=== PATIENT | female | born 1950 | race Caucasian/White ===

== ENCOUNTER → 2018-04-15 | Outpatient (CLI) | payer MEDICARE, OTHER ==
--- NOTE | 2018-04-15 16:58 | RAD ---
History: Right shoulder pain. Comparison: None. Findings: AP internal rotation, AP external rotation, and scapular Y view of the right shoulder. No acute fracture or dislocation is identified. Mild glenohumeral degeneration is seen. Impression: 1. No acute fracture or dislocation is identified. 2. Mild glenohumeral degeneration. Electronically signed by: Jeremy Gallegos MD (04/15/2018 4:54 PM) [facility]
== END | disposition home or self-care (01) ==
LOC: PMG 12:39
PROVIDERS: ATTEND Physician Assistant
DX: M19.011 Primary osteoarthritis, right shoulder (principal)
CPT/HCPCS: 73030

== ENCOUNTER → 2019-02-14 | Outpatient (CLI) | payer MEDICARE, OTHER ==
--- NOTE | 2019-02-14 11:42 | RAD ---
Lumbar spine 5 views. HISTORY: Low back pain 5 views were taken of the lumbar spine including both obliques. There is no acute fracture. There is mild hypertrophic facet arthritis in the lower lumbar spine. There is not evidence of spondylolysis. There is no abnormal subluxation. IMPRESSION: 1. Mild degenerative and hypertrophic changes in the lumbar spine. 2. No acute fracture. Electronically signed by: Germán Mary MD (02/14/2019 11:39 AM) [facility]
== END | disposition home or self-care (01) ==
LOC: RAD 11:03
PROVIDERS: ATTEND Physician Assistant
DX: M51.36 Other intervertebral disc degeneration, lumbar region (principal); M89.38 Hypertrophy of bone, other site; M46.86 Other specified inflammatory spondylopathies, lumbar region
CPT/HCPCS: 72110

== ENCOUNTER → 2021-02-20 | Outpatient (CLI) | payer MEDICARE, OTHER ==
[~2021-02-20] MED LIST: IOHEXOL 240 MG/ML 50ML VIAL. ONE; IOHEXOL 240 MG/ML 50ML VIAL. PO ONE; IOHEXOL 300 MG/ML 75 ML VIAL. IV ONE
[2021-02-20 09:18] LABS: CREATININE 1.3 mg/dL (0.6-1.0); GFR 40.3
--- NOTE | 2021-02-20 10:24 | RAD ---
EXAM: Abdomen and pelvis CT with intravenous contrast. HISTORY: Rectal bleeding. Rectal cancer. TECHNIQUE: Computed tomographic images of the abdomen and pelvis were obtained following the administ ration of intravenous contrast. Multiplanar reformatting was performed. *One or more of the following individualized dose reduction techniques were utilized for this examina tion: 1. Automated exposure control. 2. Adjustment of the mA and/or kV according to patient size. 3. Use of iterative reconstruction technique. COMPARISON: None. FINDINGS: Evaluation of the lower thorax demonstrates no infiltrate, pleural effusion or suspicious p ulmonary nodule. The heart is normal in size. There is a patulous distal esophagus. No hepatic lesion is seen on this noncontrast exam. The gallbladder is absent. The pancreas, spleen and right adrenal gland are unremarkable. There is slight thickening of the left adrenal gland without a discrete nodul e. There is bilateral renal cortical scarring and mild renal atrophy. There is no hydronephrosis or s uspicious renal lesion. There is no appendicitis. There is no bowel obstruction. There are distal colonic diverticula. There is slight increased fat within the rectal wall, a finding which can be seen as a sequela of prior inf lammation. There is no evidence of acute colitis or proctitis. There is slight increased soft tissue density within the perineum surrounding the anus. No convincing mass or abscess is seen. The uterus i s unremarkable. There is a 2.2 cm right ovarian cyst. This is simple in appearance. The bladder is unremarkable. There is calcified atherosclerotic plaque involving the aorta and iliac bifurcation. There is mild ectasia of the distal abdominal aorta to a caliber of 2.5 cm. 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 There is no lymphadenopathy or evidence of a soft tiss ue implant. There is no acute or suspicious osseous finding. There is degenerative change throughout the spine, with associated multilevel listhesis. IMPRESSION: 1. Mild increased rectal wall fat and increased soft tissue density within the perineum surrounding t he anus, possibly due to sequela of prior inflammation. There is no convincing mass or abscess. Given a history of rectal cancer, correlation with sigmoidoscopy findings may be useful. 2. Distal colonic diverticulosis. There is no convincing diverticulitis. 3. 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 4. 2.2 cm right ovarian cyst. Given the postmenopausal status the patient, pelvic sonography can be p erformed for better characterization. Electronically signed by: Galilea Sanders MD (02/20/2021 10:22 AM) [id number]
== END ==
LOC: CT 08:33
PROVIDERS: ATTEND Internal Medicine Gastroenterology
DX: I77.811 Abdominal aortic ectasia (principal); K57.30 Diverticulosis of large intestine without perforation or abscess without bleeding; N83.201 Unspecified ovarian cyst, right side; I70.0 Atherosclerosis of aorta; N26.1 Atrophy of kidney (terminal)
CPT/HCPCS: 36415; 74176; 82565; 84520

== ENCOUNTER → 2021-03-07 | Outpatient (CLI) | payer MEDICARE, OTHER ==
--- NOTE | 2021-03-08 08:56 | RAD ---
US PELVIS COMPLETE History: Reason: RT OVARIAN CYST SEEN ON CT / Spl. Instructions: / History: Comparison: CT February 20, 2021 Technique: Grayscale and color Doppler imaging of the pelvis was performed using transabdominal techn ique. Findings: The uterus measures 6.1 x 4.1 x 2.3 cm. Degraded evaluation. Endometrium not well identified. Right adnexal cystic lesion measures 2.5 x 2.0 x 1.4 cm. Bilateral ovaries not definitively identified. IMPRESSION: 1. Small right adnexal cyst, similar compared to CT allowing for differences in technique. Electronically signed by: Yoan Hernandez DO (03/08/2021 8:54 AM) [id number]
== END ==
LOC: US 10:48
PROVIDERS: ATTEND Internal Medicine Gastroenterology
DX: N83.291 Other ovarian cyst, right side (principal)
CPT/HCPCS: 76856